=== PATIENT | female | born 2000 | race Caucasian/White ===

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

== ENCOUNTER → 2022-06-11 | Outpatient (CLI) | payer OTHER ==
[~2022-06-11] MED LIST: ISOVUE-300 61% 50ML VIAL As Ordered ONE; LIDOCAINE 1% MDV 20ML VIAL As Ordered ONE; LOW OGESTREL; TRIAMCINOLONE ACETONIDE SUSP 40 MG/ML VIAL (J3301) As Ordered ONE
== END ==
LOC: M RAD 13:00
PROVIDERS: ATTEND Physician Assistant Surgical
DX: M25.551 Pain in right hip (principal)

== ENCOUNTER → 2023-06-25 | Outpatient (REF) ==
[~2023-06-25] MED LIST changes: -ISOVUE-300 61% 50ML VIAL As Ordered ONE; -LIDOCAINE 1% MDV 20ML VIAL As Ordered ONE; -TRIAMCINOLONE ACETONIDE SUSP 40 MG/ML VIAL (J3301) As Ordered ONE
== END ==
LOC: M PLAIMG 08:45
PROVIDERS: ATTEND Internal Medicine
DX: R06.02 Shortness of breath (principal)

== ENCOUNTER 2023-07-27 09:50 | Inpatient (IN) | payer OTHER ==
[~2023-07-27] VITALS: Ht 162.6 cm; Wt 70.5 kg
[2023-07-27] MEDS ORDERED: LEXA1TAB2 PO (10:09)
[2023-07-27] MEDS ORDERED: NAPR-885 PO (10:09)
[2023-07-27 11:05] LABS: HEMATOCRIT 43.6 % (36.0-47.0); HEMOGLOBIN 14.7 g/dl (12.0-15.5); MEAN CORPUSCULAR HEMOGLOBIN 28.8 pg (27.0-33.0); MEAN CORPUSCULAR HGB CONC 33.7 g/dl (32.0-36.5); MEAN CORPUSCULAR VOLUME 85.3 fl (80.0-96.0); PLATELET COUNT, AUTOMATED 362 10^3/uL (150-450); RED BLOOD COUNT 5.11 10^6/uL (4.00-5.40); WHITE BLOOD COUNT 9.3 10^3/uL (4.0-10.0)
[2023-07-27 11:26] LABS: AMPHETAMINES LEVEL URINE NEGATIVE (NEGATIVE); BARBITURATES URINE NEGATIVE (NEGATIVE); BENZODIAZEPINES URINE NEGATIVE (NEGATIVE); CANNABINOIDS URINE NEGATIVE (NEGATIVE); COCAINE METABOLITE URINE NEGATIVE (NEGATIVE); ETHYL ALCOHOL (ETHANOL) 0.004 % (0.000-0.010); METHADONE URINE NEGATIVE (NEGATIVE); OPIATES URINE NEGATIVE (NEGATIVE); PHENCYCLIDINE URINE NEGATIVE (NEGATIVE)
[2023-07-27 11:28] LABS: SALICYLATE LEVEL < 3.0 MG/DL (<30)
[2023-07-27 11:29] LABS: ALKALINE PHOSPHATASE 66 U/L (46-116); ALT/SGPT 44 U/L (7.0-40); AST/SGOT 37 U/L (<34); BILIRUBIN,DIRECT < 0.1 MG/DL (<0.4); BILIRUBIN,TOTAL 0.3 MG/DL (0.3-1.2); BLOOD UREA NITROGEN 11 MG/DL (9-23); CALCIUM LEVEL 9.6 MG/DL (8.5-10.1); CARBON DIOXIDE LEVEL 27 MMOL/L (20-31); CHLORIDE LEVEL 106 MMOL/L (98-107); CREATININE FOR GFR 0.51 MG/DL (0.55-1.30); GLOMERULAR FILTRATION RATE > 60.0 (>60); GLUCOSE, FASTING 78 MG/DL (60-100); POTASSIUM SERUM 4.8 MMOL/L (3.5-5.1); SODIUM LEVEL 141 MMOL/L (136-145); TOTAL PROTEIN 7.5 G/DL (5.7-8.2)
[2023-07-27 11:31] LABS: THYROID STIMULATING HORMONE 4.122 uIU/ML (0.55-4.78)
[2023-07-27 12:54] LABS: HCG, SERUM QUALITATIVE NEGATIVE (NEGATIVE)
[2023-07-27] MEDS ORDERED: HOME MED LIST COMPLETE! XX SCH (13:00)
[2023-07-27] MEDS ORDERED: MAALOX 30 ML SUSP *UDC PO PRN (17:45)
[2023-07-27] MEDS ORDERED: IBUPROFEN 400MG TAB PO PRN (17:45)
[2023-07-27] MEDS ORDERED: MOM 30ML SUSPENSION UDC PO PRN (17:45)
[2023-07-27] MEDS ORDERED: diphenhydrAMINE 25MG CAP PO PRN (17:45)
[2023-07-27 21:58] VITALS: BP 124/78; TEMP 97.8; O2SAT 99
[2023-07-28 06:38] VITALS: BP 117/58; TEMP 98.6; O2SAT 99
[2023-07-28] MEDS: ESCITALOPRAM OXALATE 10 MG TAB (LEXAPRO) PO SCH (09:24)
[2023-07-28 17:33] VITALS: BP 154/67; TEMP 98.6; O2SAT 97
[2023-07-28] MEDS: traZODone 50 MG TAB PO PRN (22:49)
[2023-07-29 06:45] VITALS: BP 120/59; TEMP 98.1; O2SAT 99
[2023-07-29] MEDS: ESCITALOPRAM OXALATE 10 MG TAB (LEXAPRO) PO SCH (09:03)
[2023-07-29] MEDS: traZODone 50 MG TAB PO PRN (23:46)
[2023-07-30 06:20] VITALS: BP 115/55; TEMP 98.4; O2SAT 98
[2023-07-30] MEDS: ESCITALOPRAM OXALATE 10 MG TAB (LEXAPRO) PO SCH (09:18)
[2023-07-30 18:00] VITALS: BP 120/64; TEMP 98.6; O2SAT 99
[2023-07-31] MEDS: traZODone 50 MG TAB PO PRN ×2 (00:30→21:33)
[2023-07-31] MEDS: ACETAMINOPHEN TAB 650MG DOSE (2X325MG) PO PRN ×3 (00:30→21:33)
[2023-07-31 06:48] VITALS: BP 125/58; TEMP 98.8; O2SAT 99
[2023-07-31] MEDS: ESCITALOPRAM OXALATE 10 MG TAB (LEXAPRO) PO SCH (09:49)
[2023-07-31 19:30] VITALS: BP 128/65; TEMP 98.2; O2SAT 99
[2023-08-01 06:27] VITALS: BP 115/58; TEMP 98.6; O2SAT 98
[2023-08-01] MEDS: ESCITALOPRAM OXALATE 10 MG TAB (LEXAPRO) PO SCH (08:32)
[2023-08-01 18:32] VITALS: BP 137/93; TEMP 97.9; O2SAT 98
[2023-08-01] MEDS: traZODone 50 MG TAB PO PRN (21:02)
[2023-08-01] MEDS: ACETAMINOPHEN TAB 650MG DOSE (2X325MG) PO PRN (21:03)
[2023-08-02 06:38] VITALS: BP 130/61; TEMP 98; O2SAT 97
[2023-08-02] MEDS ORDERED: TRAZ-252 PO (08:03)
[2023-08-02] MEDS ORDERED: LEXA1TAB2 PO (08:03)
[2023-08-02] MEDS: ESCITALOPRAM OXALATE 10 MG TAB (LEXAPRO) PO SCH (08:33)
== END 2023-08-02 10:18 | disposition home or self-care (01) | DRG 881 ==
LOC: M ED 09:50 → EDBD 09:50 → M ED INP 17:41 → M PSY 21:19
PROVIDERS: ADMIT Student in an Organized Health Care Education/Training Program; ATTEND Student in an Organized Health Care Education/Training Program
DX: F32.A Depression, unspecified (principal); R45.851 Suicidal ideations; F32.9 Major depressive disorder, single episode, unspecified; F41.9 Anxiety disorder, unspecified